=== PATIENT | male | born 1960 | race Caucasian/White ===

== ENCOUNTER 2018-07-13 20:00 | Emergency (ER) | payer BC, OTHER ==
[2018-07-13] MEDS ORDERED: Ketorolac INJ* 30 MG/ML 1 ML VIAL IV PUSH ONE (21:20)
[2018-07-13] MEDS ORDERED: NS 0.9% 1000 ML* 1,000 ML IV ONE (21:20)
[2018-07-13] MEDS ORDERED: diPHENhydraMINE IV* 50 MG/ML 1 ml VIAL (BENADRYL) IV ONE (21:20)
[2018-07-13] MEDS ORDERED: Metoclopramide IV* 5 MG/ML 2 ML VIAL IV SLOW PU ONE (21:20)
--- NOTE | 2018-07-13 22:29 | ED ---
Headache - HPI Summary HPI Summary: This is scribe Corine Loyola documenting for attending Cortney Burris MD. This patient is a 58 year old M presenting to [facility] with a chief complaint of migraine headache since noon today. He states he typically gets migraines once a week, but he has not had a migraine in the past four weeks. Patient is sitting in dark. He typically take two doses of Imitrex and a muscle relaxer, however medications have not relieved symptoms. I, Dr. Burris ,personally performed the services described in this documentation as scribed in my presence and it is both accurate and complete - History Of Current Complaint Chief Complaint: EDHeadache Stated Complaint: HEADACHE Time Seen by Provider: 07/13/18 21:08 Hx Obtained From: Patient Onset/Duration: Started hours ago Currently Pain Is: Current Pain Scale(0-10)= - 10 Timing: Constant Character: Migraine Aggravating Factor: Bright Lights Allevating Factors: Nothing Associated Signs And Symptoms: Negative - Allergies/Home Medications Allergies/Adverse Reactions: Allergies Allergy/AdvReac Type Severity Reaction Status Date / Time No Known Allergies Allergy Verified 06/15/15 21:49 PMH/Surg Hx/FS Hx/Imm Hx Cardiovascular History: Denies: Hx Myocardial Infarction Neurological History: Reports: Hx Migraine Psychiatric History: Reports: Hx Post Traumatic Stress Disorder Infectious Disease History: No Infectious Disease History: Denies: Traveled Outside the [place] in Last 30 Days - Family History Known Family History: Positive: Hypertension - Social History Alcohol Use: None Hx Substance Use: No Substance Use Type: Reports: None Hx Tobacco Use: No Smoking Status (MU): Never Smoked Tobacco Review of Systems Negative: Fever Positive: Photophobia Positive: Headache All Other Systems Reviewed And Are Negative: Yes Physical Exam - Summary Physical Exam Summary: VITAL SIGNS: Reviewed. GENERAL: Patient is a well-developed and nourished male who is lying comfortable in the stretcher. Patient is not in any acute respiratory distress. HEAD AND FACE: No signs of trauma. No ecchymosis, hematomas or skull depressions. No sinus tenderness. EYES: PERRLA, EOMI x 2, No injected conjunctiva, no nystagmus. EARS: Hearing grossly intact. Ear canals and tympanic membranes are within normal limits. MOUTH: Oropharynx within normal limits. NECK: Supple, trachea is midline, no adenopathy, no JVD, no carotid bruit, no c- spine tenderness, neck with full ROM. CHEST: Symmetric, no tenderness at palpation LUNGS: Clear to auscultation bilaterally. No wheezing or crackles. CVS: Regular rate and rhythm, S1 and S2 present, no murmurs or gallops appreciated. ABDOMEN: Soft, non-tender. No signs of distention. No rebound no guarding, and no masses palpated. Bowel sounds are normal. EXTREMITIES: FROM in all major joints, no edema, no cyanosis or clubbing. NEURO: Alert and oriented x 3. No acute neurological deficits. Speech is normal and follows commands. SKIN: Dry and warm Triage Information Reviewed: Yes Vital Signs On Initial Exam: Initial Vitals Temp Pulse Resp BP Pulse Ox 97.8 F 58 16 154/80 99 07/13/18 20:02 07/13/18 20:02 07/13/18 20:02 07/13/18 20:02 07/13/18 20:02 Vital Signs Reviewed: Yes Diagnostics - Vital Signs Vital Signs Temp Pulse Resp BP Pulse Ox 07/13/18 22:02 75 125/71 97 07/13/18 20:02 97.8 F 58 16 154/80 99 - Laboratory Lab Statement: Any lab studies that have been ordered have been reviewed, and results considered in the medical decision making process. Re-Evaluation - Re-Evaluation First Eval Re-Evaluation Time: 20:47 Change: Improved Comment: Patient is feeling much better. Headache has subsided. Headache Course/Dx - Course Course Of Treatment: "This patient is a 58 year old M presenting to [facility] with a chief complaint of migraine headache since noon today. He states he typically gets migraines once a week, but he has not had a migraine in the past four weeks. Patient is sitting in dark. He typically take two doses of Imitrex and a muscle relaxer, however medications have not relieved symptoms". No laboratory scans were done. In the ED course, the patient received Benadryl, Toradol, Reglan and IV fluids. During revealuation, the patient indicated that he was feeling much better and the headache subsided. Patient will be discharged home with a diagnosis of migraine headache. Patient is to follow up with PCP in 1-2 days. Patient is agreeable with this plan. - Diagnoses Provider Diagnoses: Migraine headache Discharge - Sign-Out/Discharge Documenting (check all that apply): Patient Departure - DISCHARGE - Discharge Plan Condition: Stable Disposition: HOME Patient Education Materials: Migraine Headache (ED), Acute Headache (ED) Referrals: Lori Gaxiola [Primary Care Provider] - 2 Days Additional Instructions: FOLLOW UP WITH PRIMARY CARE IN 1-2 DAYS. RETURN TO ED FOR ANY NEW OR WORSENING SYMPTOMS.
[2018-07-13 23:34] VITALS: BP 122/77
== END 2018-07-13 23:37 | disposition home or self-care (01) ==
LOC: ED 20:00
DX: G43.909 Migraine, unspecified, not intractable, without status migrainosus (principal); R51 Headache; H53.149 Visual discomfort, unspecified
CPT/HCPCS: 96374; 96375; 99283; J1200; J1885; J2765